=== PATIENT | male | born 1985 | race Asian ===

== ENCOUNTER 2021-07-21 11:25 | Outpatient (REF) | payer OTHER, SELFPAY | END 2021-07-21 11:26 | disposition home or self-care (01) | LOC: HO.LAB 11:25 | PROVIDERS: Visit Provider Internal Medicine | DX: Z20.822 Contact with and (suspected) exposure to COVID-19 (principal) | CPT/HCPCS: C9803; U0003; U0005 ==

== ENCOUNTER 2025-06-01 09:12 | Emergency (ER) | payer OTHER, SELFPAY ==
[2025-06-01] VITALS (7 sets, daily range): BP systolic 128–141; BP diastolic 86–93; PULSE 80–115; RESP 18–20; TEMP 36.2–36.9; O2SAT 93–97; BMI 32.5
--- NOTE | ~2025-06-01 | CT_ITS ---
EXAMINATION: CT ANGIOGRAM CHEST CLINICAL INFORMATION: Shortness of breath, chest pain, elevated d-dimer COMPARISON: Same-day chest x-ray TECHNIQUE: Multiple axial images were obtained through the chest after the administration of 65 mL of Omnipaque 350 intravenous contrast. Extensive vascular post-processing including two-dimensional and three-dimensional reformatted images were created and reviewed on an independent workstation. This CT examination was performed using dose optimization techniques as appropriate, variously including the following: *Automated exposure control *Adjustment of mA and/or kV according to patient size (this includes techniques or standardized protocols for targeted exams where dose is matched to indication/reason for exam; i.e. extremities or head) *Use of iterative reconstruction technique DLP: 286 mGY*cm FINDINGS: QUALITY OF STUDY/CONTRAST BOLUS: Suboptimal with incomplete opacification of uncertain etiology. Contrast is clearly evident at the inflow side in the superior vena cava, and there is also good contrast opacification in the aortic root on the outflow side. Nonetheless, opacification of the pulmonary artery is less than the opacification in the thoracic aorta and pulmonary veins. PULMONARY ARTERIES: No central pulmonary emboli. Emboli of peripheral vessels cannot be excluded with any degree of certainty. THORACIC AORTA: Well opacified by contrast without aneurysm or vascular calcifications. LUNGS AND PLEURA: Multifocal groundglass opacities are present in the left lower lobe. MEDIASTINUM: Unremarkable CORONARY ARTERY CALCIFICATION: No vascular calcifications are evident. CHEST WALL/AXILLA: No axillary or internal mammary lymphadenopathy. UPPER ABDOMEN: Unremarkable BONES: Unremarkable CT/CT angio chest PE protocol IMPRESSION: Patchy groundglass density in the left lower lobe raises concern for pneumonia/atypical pneumonia. Poor quality study. No gross or central pulmonary embolus. Fleischner guidelines were followed. Electronically signed by: Ross Solares MD 06/01/2025 03:31 PM EDT
--- NOTE | ~2025-06-01 | US_ITS ---
EXAMINATION: US LOWER EXTREMITY VEINS LIMITED FOLLOW UP LEFT HISTORY: calf pain COMPARISON: There are no prior studies available for comparison. TECHNIQUE: Duplex and color Doppler sonographic examination of the deep venous system of the left lower extremity was performed. FINDINGS: The common femoral, superficial femoral, and popliteal veins are patent demonstrating normal compressibility, spontaneous flow, and augmentation. There is a normal color and spectral Doppler waveform appearance of the visualized deep venous system above the knee. The posterior tibial and peroneal veins are patent. US/US venous duplex LE LT IMPRESSION: No evidence of acute DVT in the left lower extremity. Electronically signed by: Matt Silva MD 06/01/2025 01:14 PM EDT
--- NOTE | ~2025-06-01 | XR_ITS ---
EXAMINATION: XR CHEST CLINICAL INFORMATION: coughing, flu exposure COMPARISON: None available. TECHNIQUE: 2 views of the chest were obtained. FINDINGS: The cardiac, hilar, and mediastinal contours are normal. The lungs are clear bilaterally. There is no pneumothorax or pleural effusion. There is no focal osseous or soft tissue abnormality. XR/XR chest 2V IMPRESSION: Normal chest. Electronically signed by: Armen Vegas MD 06/01/2025 10:22 AM EDT
--- NOTE | 2025-06-01 09:51 | ED.GENADULT ---
HPI - General Adult General Chief complaint: Upper Respiratory Symptoms Stated complaint: stated he feels like he has a flu Time Seen by Provider: 06/01/25 09:50 Source: patient and RN notes reviewed Mode of arrival: ambulatory Limitations: no limitations History of Present Illness ED Provider: Shelbi Inman PA-C HPI narrative: This is a 40-year-old male who presents emergency department for evaluation of cough, intermittent fevers, shortness for breath, and chest pain for the last 10 days. Patient reports that he was recently exposed to the flu and believes that he has these symptoms. He has been taking [id number] cold medication which has provided him with some relief. He states that the chest pain is constant, worsens with coughing. No recent travel, surgery, hospitalizations. No surgeries. He is a smoker, typically smokes a pack every 3 days. No other complaints or concerns at this time. MD complaint: Shortness for breath, fevers, cough Onset (ago): day(s) Relieving factors: none Exacerbating factors: none Associated symptoms: denies other symptoms Related Data Previous Rx's ?Medication ?Instructions ?Recorded azithromycin 250 mg tablet See Rx Instructions PO .COMPLEX #6 06/01/25 tabs Allergies Allergy/AdvReac Type Severity Reaction Status Date / Time No Known Allergies Allergy Verified 06/01/25 09:16 Review of Systems Review of Systems: Yes all other systems are reviewed and are negative Constitutional: Constitutional: Reports as per [facility] Past Medical History Attestation statement: The following information was validated with the patient. Social History Social History Alcohol intake: current Alcohol intake frequency: holidays/special occasions only Physical Exam ED Vital Signs: Vital Signs - 24 hr 06/01/25 09:15 06/01/25 09:47 06/01/25 09:47 Temperature 97.1 F Pulse Rate 100 Respiratory Rate 18 18 Blood Pressure 141/90 H Pulse Oximetry 97 96 Oxygen Delivery Method Room Air Room Air 06/01/25 09:47 06/01/25 12:31 06/01/25 13:28 Temperature 98.3 F 98.4 F Pulse Rate 81 Respiratory Rate 18 Blood Pressure 131/86 Pulse Oximetry 97 93 95 Oxygen Delivery Method Room Air Room Air 06/01/25 13:28 06/01/25 13:55 06/01/25 16:10 Temperature 98.1 F Pulse Rate 115 H 80 82 Respiratory Rate 20 18 18 Blood Pressure 128/93 H 134/89 Pulse Oximetry 95 96 97 Oxygen Delivery Method Room Air Room Air Room Air BMI result Body Mass Index 32.5 Const General: cooperative, comfortable and no acute distress Orientation/consciousness: patient oriented x3 Limitations: no limitations HENMT Head: Yes normal to inspection, Yes normocephalic and Yes atraumatic Ears: hearing grossly normal bilaterally General nose exam: Normal external nose present Face and sinus: Yes normal facial exam Mouth: Normal oral and palatal mucosa present, oropharynx normal and moist mucous membranes Throat: Yes posterior oropharynx normal Eyes General: appearance normal, both eyes and all related structures Eyelids: Yes eyelids normal Conjunctivae: conjunctivae normal Sclerae: sclerae normal Pupils: Equal, round and reactive pupils present EOM: EOMs intact bilaterally Neck Neck: Yes normal visual inspection, Yes full ROM and Yes no lymphadenopathy Lymphatic: no lymphadenopathy noted Chest Chest palpation & inspection: normal inspection of the chest Resp Effort & Inspection: normal respiratory effort and able to speak in complete sentences Auscultation: clear to auscultation bilaterally, no crackles, no rales, no rhonchi and no wheezes Cardio Rate: regular rate Rhythm: regular rhythm Heart sounds: S1 normal heart sound present and S2 normal heart sound present GI Inspection: Yes normal to inspection Skin General skin exam: no rashes or lesions noted Trauma: no lacerations or abrasions Wounds: no wounds Neuro General: patient oriented x3 and moves all extremities Cranial nerves: Yes Equal, round and reactive pupils present Extrem Other: Mild left calf pain, strong DP pulse. General: Yes normal to inspection Right upper extremity: normal to inspection Left upper extremity: normal to inspection Right lower extremity: normal to inspection Left lower extremity: normal to inspection Medications Administered Discontinued Medications Generic Name Dose Route Start Last Admin Trade Name Freq PRN Reason Stop Dose Admin Iohexol 100 ml 06/01/25 15:05 06/01/25 15:11 Iohexol 350 Mg/Ml 100 Ml Infus..Btl IV 06/01/25 15:06 65 ml ONCE ONE Administration Medical Decision Making Medical Decision Making MDM Narrative: This is a 40-year-old male who presents emergency department with concerns of fever, cough, difficulty breathing. Recent exposure to flu. On arrival, blood pressure mildly elevated 141/90, all other vital signs within normal limits. Differential diagnoses include flu, COVID, RSV. Given chest discomfort, will obtain EKG and basic labs. Will also obtain x-ray. Patient is speaking in full sentences under no acute distress, lungs are clear to auscultation bilaterally. 1307 - labs returned, he has no leukocytosis, stable H&H, chemistry revealing slight elevation in AST and ALT at 40 and 81, troponin less than 2.7. Awaiting ultrasound. Chest x-ray unremarkable. 1618 -ultrasound negative. CTA was performed given elevated D-dimer. patient found to have patchy ground-glass density in the left lower lobe, raising concern for pneumonia/atypical pneumonia. Discussed findings with patient. Discharged on azithromycin. Vital signs are within normal limits. Patient stable for discharge. Differential Diagnosis Differential Diagnoses: The differential diagnosis associated with the presentation includes See above Admission/Observation Consideration of admission/observation: Escalation of care including admission/observation considered Lab Data MDM Lab Attestation statement: I reviewed the patient's lab results. See MDM and course 06/01/25 11:39 06/01/25 10:07 Labs: Lab Results 06/01/25 06/01/25 06/01/25 Range/Units 09:19 10:07 10:58 WBC (4.8-10.8) X10*3/uL RBC (4.60-5.80) X10*6/uL Hgb (14.0-18.0) g/dl Hct (42.0-52.0) % MCV (80.0-98.0) fL MCH (27.0-33.0) pg MCHC (31.0-36.0) g/dl RDW (11.0-16.0) % Plt Count (160-400) X10*3/uL MPV (9.4-12.4) fL Immature Gran % (Auto) (0.0-0.4) % Neut % (Auto) (45-73) % Lymph % (Auto) (20-40) % Brooke % (Auto) (2-11) % Eos % (Auto) (0-4) % Baso % (Auto) (0-2) % Lymph # (Auto) (1.2-4.9) X10*3/uL Brooke # (Auto) (0.1-1.2) X10*3/uL Eos # (Auto) (0.0-0.4) X10*3/uL Baso # (Auto) (0.0-0.2) X10*3/uL Abs Immat Gran (auto) (0.00-0.03) X10*3/uL Absolute Neuts (auto) (2.0-8.3) x10*3/uL Absolute Nucleated RBC (0.0-0.012) X10*3/uL Nucleated RBC % (auto) (0.0-0.2) /100WBC PT (10.9-12.4) SEC INR (0.9-1.1) D-Dimer High Sensitivty NG/ML Sodium 138 (135-145) mmol/L Potassium 4.4 (3.3-5.1) mmol/L Chloride 107 (96-108) mmol/L Carbon Dioxide 20 L (22-29) mmol/L Anion Gap 15 (12-20) BUN 12 (9-16) mg/dL Creatinine 0.79 (0.5-1.4) mg/dL Estim Creat Clear Calc 146.2 Estimated GFR > 60 Random Glucose 104 (60-115) mg/dL Calcium 9.1 (8.4-10.2) mg/dL Magnesium 2.2 (1.6-2.6) mg/dL Total Bilirubin 0.5 (0.0-1.0) mg/dL Direct Bilirubin 0.1 (0.0-0.5) mg/dL AST 40 H (5-37) U/L ALT 81 H (0-40) U/L Alkaline Phosphatase 53 (39-117) U/L Troponin I High Sens < 2.7 (<3.5-35.0) ng/L Total Protein 8.8 H (6.5-8.0) g/dL Albumin 4.8 (3.5-5.0) g/dL Lipase 19 (8-78) U/L Influenza Type A (PCR) NEGATIVE (Negative) Influenza Type B (PCR) NEGATIVE (Negative) RSV RNA Qual (PCR) NEGATIVE (Negative) SARS-CoV-2 RNA (RT-PCR) NEGATIVE (Negative) 06/01/25 Range/Units 11:39 WBC 9.0 (4.8-10.8) X10*3/uL RBC 6.20 H (4.60-5.80) X10*6/uL Hgb 17.3 (14.0-18.0) g/dl Hct 52.3 H (42.0-52.0) % MCV 84.4 (80.0-98.0) fL MCH 27.9 (27.0-33.0) pg MCHC 33.1 (31.0-36.0) g/dl RDW 12.6 (11.0-16.0) % Plt Count 221 (160-400) X10*3/uL MPV 9.9 (9.4-12.4) fL Immature Gran % (Auto) 0.7 H (0.0-0.4) % Neut % (Auto) 58.1 (45-73) % Lymph % (Auto) 32.1 (20-40) % Brooke % (Auto) 6.8 (2-11) % Eos % (Auto) 2.0 (0-4) % Baso % (Auto) 0.3 (0-2) % Lymph # (Auto) 2.9 (1.2-4.9) X10*3/uL Brooke # (Auto) 0.6 (0.1-1.2) X10*3/uL Eos # (Auto) 0.2 (0.0-0.4) X10*3/uL Baso # (Auto) 0.0 (0.0-0.2) X10*3/uL Abs Immat Gran (auto) 0.06 H (0.00-0.03) X10*3/uL Absolute Neuts (auto) 5.2 (2.0-8.3) x10*3/uL Absolute Nucleated RBC 0.000 (0.0-0.012) X10*3/uL Nucleated RBC % (auto) 0.0 (0.0-0.2) /100WBC PT 11.0 (10.9-12.4) SEC INR 1.0 (0.9-1.1) D-Dimer High Sensitivty 378 NG/ML Sodium (135-145) mmol/L Potassium (3.3-5.1) mmol/L Chloride (96-108) mmol/L Carbon Dioxide (22-29) mmol/L Anion Gap (12-20) BUN (9-16) mg/dL Creatinine (0.5-1.4) mg/dL Estim Creat Clear Calc Estimated GFR Random Glucose (60-115) mg/dL Calcium (8.4-10.2) mg/dL Magnesium (1.6-2.6) mg/dL Total Bilirubin (0.0-1.0) mg/dL Direct Bilirubin (0.0-0.5) mg/dL AST (5-37) U/L ALT (0-40) U/L Alkaline Phosphatase (39-117) U/L Troponin I High Sens (<3.5-35.0) ng/L Total Protein (6.5-8.0) g/dL Albumin (3.5-5.0) g/dL Lipase (8-78) U/L Influenza Type A (PCR) (Negative) Influenza Type B (PCR) (Negative) RSV RNA Qual (PCR) (Negative) SARS-CoV-2 RNA (RT-PCR) (Negative) Independent Interpretation I performed an independent interpretation of an: EKG Interpretation: EKG normal sinus rhythm at a ventricular rate of 80 beats per minute, SD interval 170, QT QTC 356/410. No STEMI Radiology Impression Discussion of test interpretation with radiology: I have reviewed the radiologist's reading. Radiologist Impression: COMPARISON: Same-day chest x-ray TECHNIQUE: Multiple axial images were obtained through the chest after the administration of 65 mL of Omnipaque 350 intravenous contrast. Extensive vascular post-processing including two-dimensional and three-dimensional reformatted images were created and reviewed on an independent workstation. This CT examination was performed using dose optimization techniques as appropriate, variously including the following: *Automated exposure control *Adjustment of mA and/or kV according to patient size (this includes techniques or standardized protocols for targeted exams where dose is matched to indication/reason for exam; i.e. extremities or head) *Use of iterative reconstruction technique DLP: 286 mGY*cm FINDINGS: QUALITY OF STUDY/CONTRAST BOLUS: Suboptimal with incomplete opacification of uncertain etiology. Contrast is clearly evident at the inflow side in the superior vena cava, and there is also good contrast opacification in the aortic root on the outflow side. Nonetheless, opacification of the pulmonary artery is less than the opacification in the thoracic aorta and pulmonary veins. PULMONARY ARTERIES: No central pulmonary emboli. Emboli of peripheral vessels cannot be excluded with any degree of certainty. THORACIC AORTA: Well opacified by contrast without aneurysm or vascular calcifications. LUNGS AND PLEURA: Multifocal groundglass opacities are present in the left lower lobe. MEDIASTINUM: Unremarkable CORONARY ARTERY CALCIFICATION: No vascular calcifications are evident. CHEST WALL/AXILLA: No axillary or internal mammary lymphadenopathy. UPPER ABDOMEN: Unremarkable BONES: Unremarkable CT/CT angio chest PE protocol IMPRESSION: Patchy groundglass density in the left lower lobe raises concern for pneumonia/atypical pneumonia. Poor quality study. No gross or central pulmonary embolus. Fleischner guidelines were followed. Electronically signed by: Ross Solares MD 06/01/2025 03:31 PM EDT RP Dictated By: Ross Solares MD US/US venous duplex LE LT IMPRESSION: No evidence of acute DVT in the left lower extremity. Electronically signed by: Matt Silva MD 06/01/2025 01:14 PM EDT RP Dictated By: Matt Silva MD Signed By: <Electronically signed by Matt Silva MD in OV> XR/XR chest 2V IMPRESSION: Normal chest. Electronically signed by: Armen Vegas MD 06/01/2025 10:22 AM EDT RP Dictated By: Armen Vegas MD Discharge Plan Discharge Clinical Impression: Pneumonia Patient Disposition: Home, Self-Care Instructions: Community Acquired Pneumonia (ED), Pneumonia (ED) Additional Instructions: You were seen in the emergency department today. You have concerns for possible early pneumonia. Please take prescribed antibiotic as directed, finish the entire course even if your symptoms improve. Drink plenty of fluids get plenty of rest. Follow-up with your primary care physician. If any new or worsening symptoms occur including but not limited to severe shortness for breath, chest pain, please return for re-evaluation. Your CT scan of your chest does show patchy ground-glass density in the left lower low which is concerning for a pneumonia. Prescriptions: New azithromycin 250 mg tablet See Rx Instructions .ROUTE .COMPLEX Qty: 6 0RF Rx Instructions: For 250 mg dose pack: take 500 mg today (day 1), then 250 mg for 4 days (days 2-5) Stand Alone Forms: Work/School Release Interventions: ED Discharge Assessment Last Done: 06/01/25 16:50 Discharge Date/Time: 06/01/25 16:52 Print Language: Turkish
--- OUTSIDE RECORDS SUMMARY | 2025-06-01 09:54 | XMS_ITS | Clinical Summary ---
Author Organization [facility] ity Address [address] [place] [address] Care Team Providers Care Neon Sign Erector Name Role Phone Unavailable Primary Care Provider Unavailabl e Social History Tobacco Use Types Packs/Day Years Used Date Smoking Tobacco: Never Assessed Sex and Gender Information Value Date Recorded Sex Assigned at Not on file Legal Sex Male 3:11 AM EST Gender Identity Not on file Sexual Orientation Not on file Plan of Treatment Health Maintenance Due Date Last Done Comments DTaP,Tdap,and Td Vaccines (1 - Tdap) 2005 Hepatitis B Vaccines (1 of 3 - 19+ 3-dose series) 2005 COVID-19 Vaccine (2023-2 5 season) 2024 Depression Screening 11/12/2024 Cholesterol Screening (Lipid Panel) 02/03/2025 HIV Screening 02/03/2025 Hepatitis C Screening 02/03/2025 Social Influencers of Health Screening 02/03/2025 Influenza Vaccine (#1) 2025 HIB Vaccines Aged Out No longer eligi ble based on patient's age to complete this topic HPV Vaccines Aged Out No longer eligi ble based on patient's age to complete this topic Hepatitis A Vaccines Aged Out No long er eligible based on patient's age to complete this topic IPV Vaccines Aged Out No longer eligi ble based on patient's age to complete this topic MMR Vaccines Aged Out No longer eligi ble based on patient's age to complete this topic Meningococcal ACWY Vaccine Aged Out N o longer eligible based on patient's age to complete this topic Meningococcal B Vaccine Aged Out No l onger eligible based on patient's age to complete this topic Pneumococcal Vaccine: Pediat rics (0 to 5 Years) and At-Risk Patients (6 to 49 Years) Aged Out No longer eligible b ased on patient's age to complete this topic RSV Immunization Patients Un beto 20 months Aged Out No longer eligible b ased on patient's age to complete this topic Varicella Vaccines Aged Out No longer eligible based on patient's age to complete this topic
--- NOTE | 2025-06-01 10:11 | ECG_ITS ---
Test Reason : cp Blood Pressure : */* mmHG Vent. Rate : 80 BPM Atrial Rate : 80 BPM P-R Int : 170 ms QRS Dur : 98 ms QT Int : 356 ms P-R-T Axes : 50 1 10 degrees QTcB Int : 410 ms Normal sinus rhythm Minimal voltage criteria for LVH, may be normal variant ( [place] product ) Borderline ECG No previous ECGs available Referred By: Shelbi Inman Electronically Signed By: Delvis Rojas
[2025-06-01 10:28] LABS: Anion Gap 15 (12-20); Blood Urea Nitrogen 12 mg/dL (9-16); Calcium 9.1 mg/dL (8.4-10.2); Carbon Dioxide 20 mmol/L (22-29); Chloride 107 mmol/L (96-108); Creatinine Clr Calc Pharmacy 146.2; Estimated Glomerular Filt Rate > 60; Potassium 4.4 mmol/L (3.3-5.1); Sodium 138 mmol/L (135-145)
--- NOTE | 2025-06-01 10:35 | PC.NURSE ---
Pt coming in with reports of 10days worth of flu like symptoms. Pt reports his mother in law was positive. Pt reports intermit coughing with nonproductive clear sputum. Pt has had max temps at home of 103, resolves with Motrin and APAP. Pt is afebrile here. Pt reporting he is a daily smoker, 3 days is a pack worth. Reporting chest tightness with coughing and intermit (denies asthma history, denies normal inhalers) Pt reporting muscle cramping in bilat legs at this time, awaiting work up at this time, O2 stable and being monitored, call street within reach
[2025-06-01 10:46] LABS: Resp Syncy Virus RNA Qual PCR NEGATIVE (Negative); SARS COV2 PCR INHOUSE NEGATIVE (Negative)
[2025-06-01 11:27] LABS: Albumin Level 4.8 g/dL (3.5-5.0); Alkaline Phosphatase 53 U/L (39-117); Aspartate Amino Transferase 40 U/L (5-37); Lipase 19 U/L (8-78); Magnesium 2.2 mg/dL (1.6-2.6); Total Protein 8.8 g/dL (6.5-8.0); Troponin-I High Sensitivity < 2.7 ng/L (<3.5-35.0)
[2025-06-01 11:48] LABS: Hematocrit 52.3 % (42.0-52.0); Hemoglobin 17.3 g/dl (14.0-18.0); Imm Gran Abs Auto 0.06 X10*3/uL (0.00-0.03); Imm Gran Pct Auto 0.7 % (0.0-0.4); Lymphocytes Absolute Auto 2.9 X10*3/uL (1.2-4.9); Mean Corpuscular HGB Conc 33.1 g/dl (31.0-36.0); Mean Corpuscular Hemoglobin 27.9 pg (27.0-33.0); Mean Corpuscular Volume 84.4 fL (80.0-98.0); NRBC Abs Auto 0.000 X10*3/uL (0.0-0.012); NRBC Pct Auto 0.0 /100WBC (0.0-0.2); Platelet Count 221 X10*3/uL (160-400); Red Blood Count 6.20 X10*6/uL (4.60-5.80); White Blood Count 9.0 X10*3/uL (4.8-10.8)
[2025-06-01 11:53] LABS: INTERNATIONAL NORM RATIO 1.0 (0.9-1.1); Prothrombin Time 11.0 SEC (10.9-12.4)
[2025-06-01 12:08] LABS: Alanine Aminotransferase 81 U/L (0-40)
[2025-06-01 12:55] LABS: MANUAL DIFF FLAG NO
[2025-06-01 13:57] LABS: D Dimer High Sensitivity 378 NG/ML
--- NOTE | 2025-06-01 14:11 | PC.NURSE ---
IV placed for PE CT angio, pt educated on lab results and CT scan
[2025-06-01] MEDS: iohexoL 350 MG/ML 100 ML INFUS..BTL IV (15:11)
== END 2025-06-01 16:52 | disposition home or self-care (01) ==
PROVIDERS: Physician Assistant Medical; Emergency Provider Emergency Medicine
DX: J18.9 Pneumonia, unspecified organism (principal); M79.662 Pain in left lower leg; R05.9 Cough, unspecified; R06.02 Shortness of breath; R50.9 Fever, unspecified; Z03.818 Encounter for observation for suspected exposure to other biological agents ruled out; F17.210 Nicotine dependence, cigarettes, uncomplicated
CPT/HCPCS: 36415; 71046; 71275; 80048; 80076; 83690; 83735; 84484; 85025; 85379; 85610; 87637; 93005; 93971; 99284; 99285; Q9967

== ENCOUNTER → 2025-06-01 09:19 | Outpatient (BNV) | payer OTHER, SELFPAY | PROVIDERS: Emergency Provider Emergency Medicine; Visit Provider Radiology Diagnostic Radiology | DX: R06.02 Shortness of breath (principal); R07.9 Chest pain, unspecified; M79.662 Pain in left lower leg; R05.9 Cough, unspecified; Z20.828 Contact with and (suspected) exposure to other viral communicable diseases | CPT/HCPCS: 71046; 93971 ==

== ENCOUNTER → 2025-06-01 10:11 | Outpatient (BNV) | payer OTHER, SELFPAY | PROVIDERS: Emergency Provider Emergency Medicine; Visit Provider Internal Medicine Cardiovascular Disease | DX: R07.9 Chest pain, unspecified (principal) | CPT/HCPCS: 93010 ==

== ENCOUNTER 2025-07-06 11:28 | Emergency (ER) | payer OTHER, SELFPAY ==
[2025-07-06 11:30] VITALS: BP 158/98; PULSE 107; RESP 18; TEMP 36.6; O2SAT 97; BMI 31.0
--- NOTE | 2025-07-06 11:30 | ED_ITS ---
HPI - General Adult General Chief complaint: General Medical Stated complaint: body aches Time Seen by Provider: 07/06/25 11:37 Source: patient Mode of arrival: ambulatory Limitations: no limitations History of Present Illness ED Provider: Smiley Roblero APRN HPI narrative: 40 yo male with no known medical history here with complaints of 2 days of nasal congestion, cough, malaise, subjective fevers/chills. No recent travel. No sick contact. No SOB, CP, headache, neck pain/stiffness, vomiting/diarrhea, skin rash. Related Data Previous Rx's ?Medication ?Instructions ?Recorded azithromycin 250 mg tablet See Rx Instructions PO .COM PLEX #6 06/01/25 tabs Allergies Allergy/AdvReac Type Severity Reaction Status Date / Time No Known Allergies Allergy Verified 07/06/25 11:31 Review of Systems Review of Systems: Yes all other systems are reviewed and are negative Constitutional: Constitutional: Reports no additional constitutional complaints, Denies body ache(s), Reports chills, Reports fever(s), Denies headache(s), Reports malaise and Denies weakness Eyes: Eyes: Reports no additional eye complaints and Denies change in vision ENT: Reports system reviewed and no additional complaints, except as documented, Denies dizziness, Denies headache(s), Reports nasal congestion, Denies nasal discharge and Denies neck pain Cardiovascular: Cardiovascular: Reports no additional cardiovascular complaints, Denies chest pain, Denies leg edema and Denies dyspnea Respiratory: Respiratory: Reports no additional respiratory complaints, Reports cough and Denies dyspnea Gastrointestinal: Gastrointestinal: Reports no additional gastrointestinal complaints, Denies abdominal pain, Denies diarrhea, Denies nausea and Denies vomiting Genitourinary: Genitourinary: Denies urinary incontinence Musculoskeletal: Musculoskeletal: Reports no additional musculoskeletal complaints, Denies back pain, Denies arthralgias, Denies joint swelling, Denies neck pain, Denies numbness and Denies tingling Integumentary/Breasts: Skin/Breast: Reports system reviewed and no additional complaints, except as docu and Denies rash Neurologic: Reports system reviewed and no additional complaints, except as documented, Denies Abnormal speech present, Denies dizziness, Denies headache(s), Denies numbness, Denies tingling and Denies weakness [facility]LY [facility] Past Medical History Attestation statement: The following information was validated with the patient. Source: old records reviewed and nursing notes reviewed Social History Social History Alcohol intake: current Alcohol intake frequency: holidays/special occasions only Smoked in Last 30 Days: No Use of substances other than those prescribed or required for medical reasons: No Advance Directives: No Advance Directives Information Provided: Yes Do you have a plan to hurt others: No Plan Physical Exam ED Vital Signs: Vital Signs - 24 hr 07/06/25 11:30 07/06/25 11:46 Temperature 97.8 F 98.0 F Pulse Rate 107 H 107 H Respiratory Rate 18 18 Blood Pressure 158/98 H 150/100 H Pulse Oximetry 97 96 Oxygen Delivery Method Room Air Room Air BMI result Body Mass Index 31.0 Const General: cooperative, healthy appearing, comfortable and no acute distress Orientation/consciousness: patient oriented x3 Limitations: no limitations HENMT Head: Yes normal to inspection Ears: hearing grossly normal bilaterally and TM's normal bilaterally General nose exam: Normal external nose present Face and sinus: Yes normal facial exam Mouth: Normal oral and palatal mucosa present Throat: Yes posterior oropharynx normal, Yes tonsils normal and Yes uvula midline Eyes General: appearance normal, both eyes and all related structures Pupils: Equal, round and reactive pupils present Neck Neck: Yes normal visual inspection, Yes full ROM, Yes no lymphadenopathy and Yes no meningeal signs Chest Chest palpation & inspection: normal inspection of the chest Resp Effort & Inspection: normal respiratory effort Auscultation: clear to auscultation bilaterally Cardio Rate: regular rate Rhythm: regular rhythm Peripheral pulses: Peripheral pulses 2+ throughout GI Inspection: Yes normal to inspection Palpation (GI): Soft to palpation and nontender Auscultation: normal bowel sounds Back/Spine/Pelvis Thoracic/Lumbar Spine: thoracic and lumbar spine normal to inspection Skin General skin exam: no rashes or lesions noted Neuro General: patient oriented x3, moves all extremities, no meningeal signs, no focal motor deficits and normal sensation to monofilament Cranial nerves: Yes CN's II-XII intact bilaterally, Yes Equal, round and react krista pupils present, Yes Bilaterally intact EOM present, Yes Nystagmus not present, Yes Normal facial strength present and Yes Midline tongue present Cognition (Neuro): normal cognition Speech: No Abnormal speech present Gait exam (Neuro): Normal gait present Motor exam (neuro): 5/5 motor strength present throughout Sensory Exam: Normal double simultaneous stimulation for sensation Extrem General: Yes normal to inspection, Yes no calf tenderness and No pedal edema Course Course Course Narrative: Rapid medical examination performed in triage by Emmie Montenegro PA-C. Patient is a 40 year old assigned male at presenting to the emergency department with body aches and feeling generally unwell. Patient states he has felt generally unwell over the last 3 days and it feels similar to when he had the flu. Detailed physical exam and review of systems are deferred to the lab manager. Swabs ordered. Patient placed back in the waiting room pending room availability and results. Medical Decision Making Medical Decision Making MDM Narrative: 40 yo male with no known medical history here with complaints of 2 days of nasal congestion, cough, malaise, subjective fevers/chills. No recent travel. No sick contact. No SOB, CP, headache, neck pain/stiffness, vomiting/diarrhea, skin rash. Exam is benign VSS Will send flu, covid testing Differential Diagnosis Differential Diagnoses: The differential diagnosis associated with the presentation includes influenza, viral syndrome, strep pharyngitis, AOM Admission/Observation Consideration of admission/observation: Escalation of care including admission/observation considered Covid positive with no hypoxia or tachypnea requiring supplemental oxygen and or admission Lab Data [facility] Lab Attestation statement: I reviewed the patient's lab results. Labs: Lab Results 07/06/25 Range/Units 11:37 COVID-19 (ADELFO) Positive A (Negative) COVID-19 Clin Com See Note Influenza Type A (DAVEY) Negative (Negative) Influenza Type B (DAVEY) Negative (Negative) Influenza A & B Note See Note Tests considered The following testing was considered but not selected: No hypoxia or tachypnea to suggest need for CXR Prescription Management I considered prescription management with: Antiviral Discharge Plan Discharge Clinical Impression: COVID-19 Patient Disposition: Home, Self-Care Instructions: COVID-19 (Coronavirus Disease 2019) (ED), Social Distancing Guidelines for COVID-19 (ED) Additional Instructions: Alternate Motrin and Tylenol for pain or fever Your flu test is negative Your COVID test is positive Quarantine for 5 days and mask for an additional 5 more days Return for shortness of breath that is worsening, chest pain, fever which is not respond to Motrin and Tylenol home Prescriptions: No Action azithromycin 250 mg tablet See Rx Instructions .ROUTE .COMPLEX Qty: 6 0RF Rx Instructions: For 250 mg dose pack: take 500 mg today (day 1), then 250 mg for 4 days (days 2-5) Referrals: Physician,None [Primary Care Provider, Medical] Print Language: Irish
--- NOTE | 2025-07-06 11:37 | MHC.EDTECH ---
Patient brought into triage area,Flu,and Covid swabs obtained and sent to lab.
[2025-07-06 11:46] VITALS: BP 150/100; PULSE 107; RESP 18; TEMP 36.7; O2SAT 96
[2025-07-06 12:05] LABS: COVID-19 Test Positive (Negative); IDNOW Serial# 55D5AD1C
[2025-07-06 12:06] LABS: IDNOW Serial# 58CA691E; Influenza B2 Negative (Negative)
[2025-07-06 12:41] VITALS: BP 141/94; PULSE 91; RESP 18; TEMP 36.7; O2SAT 96
--- OUTSIDE RECORDS SUMMARY | 2025-07-06 13:20 | XMS_ITS ---
[facility] Name [facility] Organization Unknown Care Team Organization Name Specialty Phone Email Start Date End Da te [facility]o [facility] 09/19/20222023
--- OUTSIDE RECORDS SUMMARY | 2025-07-06 13:20 | XMS_ITS | Clinical Summary ---
Author Organization [facility] ity Address [address] [place] [address] Care Team Providers Care Courtroom Deputy Or Calendar Clerk Name Role Phone Unavailable Primary Care Provider [...]
== END 2025-07-06 12:41 | disposition home or self-care (01) ==
PROVIDERS: Physician Assistant Medical; Emergency Provider Emergency Medicine
DX: U07.1 COVID-19 (principal); M79.10 Myalgia, unspecified site; R50.9 Fever, unspecified
CPT/HCPCS: 87502; 87635; 99283; 99284

== ENCOUNTER 2025-09-16 20:14 | Emergency (ER) | payer OTHER, SELFPAY ==
--- NOTE | ~2025-09-16 | XR_ITS ---
CLINICAL HISTORY: chest pain 2 view chest x-ray Comparison: CT/SR - CT CHEST ANGIOGRAPHY WITH IV CONTRAST - 06/01/25 14:54 EDT CR/ME/SR - XR CHEST 2 VIEWS - 06/01/25 10:19 EDT Findings: The lungs are clear. Normal size heart. No acute fracture. IMPRESSION: 1. No acute findings. This document has been electronically signed by: Beatriz Streeter MD on 09/16/2025 22:09:24
--- NOTE | 2025-09-16 20:15 | ECG_ITS ---
Test Reason : chest pain Blood Pressure : */* mmHG Vent. Rate : 110 BPM Atrial Rate : 110 BPM P-R Int : 156 ms QRS Dur : 84 ms QT Int : 318 ms P-R-T Axes : 54 -10 13 degrees QTcB Int : 430 ms Sinus tachycardia Otherwise normal ECG When compared with ECG of 01-Jun-2025 10:34, No significant change was found Referred By: Generic ED Physician Electronically Signed By: Delvis Rojas
[2025-09-16 20:27] VITALS: BP 142/94; PULSE 111; RESP 20; TEMP 36.7; O2SAT 95; BMI 32.5
--- OUTSIDE RECORDS SUMMARY | 2025-09-16 20:55 | XMS_ITS | Clinical Summary ---
Author Organization [facility] ity Address [address] [place] [address] Care Team Providers Care Tool Design Drafter Name Role Phone Unavailable Primary Care Provider [...] of 3 - 19+ 3-dose series) 2005 HPV Vaccines (1 - 3-dose SCD M series) 2013 Depression Screening 11/12/2024 COVID-19 Vaccine (1 - 2023-2 5 season) 2025 Influenza Vaccine (#1) 2025 RSV Immunization Adult Patie nts (1 - 1-dose 75+ series) 2061 HIB Vaccines Aged Out No longer eligi [...]
[2025-09-16 21:05] LABS: MANUAL DIFF FLAG NO
[2025-09-16 21:07] LABS: Hematocrit 52.8 % (42.0-52.0); Hemoglobin 17.5 g/dl (14.0-18.0); Imm Gran Abs Auto 0.07 X10*3/uL (0.00-0.03); Imm Gran Pct Auto 0.9 % (0.0-0.4); Lymphocytes Absolute Auto 2.1 X10*3/uL (1.2-4.9); Mean Corpuscular HGB Conc 33.1 g/dl (31.0-36.0); Mean Corpuscular Hemoglobin 28.3 pg (27.0-33.0); Mean Corpuscular Volume 85.3 fL (80.0-98.0); NRBC Abs Auto 0.000 X10*3/uL (0.0-0.012); NRBC Pct Auto 0.0 /100WBC (0.0-0.2); Platelet Count 169 X10*3/uL (160-400); Red Blood Count 6.19 X10*6/uL (4.60-5.80); White Blood Count 7.4 X10*3/uL (4.8-10.8)
--- NOTE | 2025-09-16 21:19 | ED_ITS ---
HPI - URI/Sore Throat General Chief Complaint: Upper Respiratory Symptoms Stated Complaint: pneumonia? sob, CP Time Seen by Provider: 09/16/25 21:16 History of Present Illness ED Provider: Jigar Mina MD HPI Narrative: 40-year-old male with cough Related Data Previous Rx's ?Medication ?Instructions ?Recorded azithromycin 250 mg tablet See Rx Instructions PO .COM PLEX #6 06/01/25 tabs amoxicillin 500 mg tablet 1,000 mg (2 x 500 mg) PO TID 5 09/16/25 days #30 tabs Allergies Allergy/AdvReac Type Severity Reaction Status Date / Time No Known Allergies Allergy Verified 09/16/25 20:29 [facility] Social History Social History Alcohol intake: current Alcohol intake frequency: holidays/special occasions only Smoked in Last 30 Days: Yes Use of substances other than those prescribed or required for medical reasons: No Advance Directives: No Advance Directives Information Provided: Yes Physical Exam 2 Vital Signs: Vital Signs: Last Vital Signs Temp 98.1 F 09/16/25 22:25 Pulse 111 H 09/16/25 22:25 Resp 20 09/16/25 22:25 BP 142/94 H 09/16/25 22:25 Pulse Ox 95 09/16/25 22:25 O2 Del Method Room Air 09/16/25 22:25 BMI result Body Mass Index 32.5 Medical Decision Making Medical Decision Making [facility] Narrative: Medical Decision Making: [age] male with cough and phlegm production. No hypoxia tachycardia or fever here. He is an active smoker. He tells me he has no PCP and I am concerned about limited follow up, health literacy. I have advised him not to smoke. He had clear lungs are no distress but I felt it reasonable given the social situation lack of follow up. Amoxicillin 1 g t.i.d. 5 days [id number] cough medicine as needed return precautions instructed Preliminary Favored Differential Diagnosis: URI, bronchitis, viral syndrome, pneumonia, smoker cough, COPD though he has no wheeze or distress among additional considered etiologies Testing Interpreted Independently: ?Sinus rhythm interventricular conduction delay subtle ST depressions inferiorly without ST elevations beyond expected in the precordium V2 V3. No change from May 2025 no STEMI criteria Radiology or Lab testing Results Reviewed: ?See below for details Consults: ?See below for details Independent Historians/External Chart Reviews: ?See below for details Social Determinants of Health Impacting MDM/Planning: ?See below for details Lab Data 09/16/25 21:01 09/16/25 21:01 Labs: Lab Results 09/16/25 Range/Units 21:01 WBC 7.4 (4.8-10.8) X10*3/uL RBC 6.19 H (4.60-5.80) X10*6/uL Hgb 17.5 (14.0-18.0) g/dl Hct 52.8 H (42.0-52.0) % MCV 85.3 (80.0-98.0) fL MCH 28.3 (27.0-33.0) pg MCHC 33.1 (31.0-36.0) g/dl RDW 13.2 (11.0-16.0) % Plt Count 169 (160-400) X10*3/uL MPV 10.2 (9.4-12.4) fL Immature Gran % (Auto) 0.9 H (0.0-0.4) % Neut % (Auto) 53.1 (45-73) % Lymph % (Auto) 27.6 (20-40) % Bradley % (Auto) 15.7 H (2-11) % Eos % (Auto) 2.2 (0-4) % Baso % (Auto) 0.5 (0-2) % Lymph # (Auto) 2.1 (1.2-4.9) X10*3/uL Bradley # (Auto) 1.2 (0.1-1.2) X10*3/uL Eos # (Auto) 0.2 (0.0-0.4) X10*3/uL Baso # (Auto) 0.0 (0.0-0.2) X10*3/uL Abs Immat Gran (auto) 0.07 H (0.00-0.03) X10*3/uL Absolute Neuts (auto) 4.0 (2.0-8.3) x10*3/uL Absolute Nucleated RBC 0.000 (0.0-0.012) X10*3/uL Nucleated RBC % (auto) 0.0 (0.0-0.2) /100WBC Sodium 136 (135-145) mmol/L Potassium 4.0 (3.3-5.1) mmol/L Chloride 102 (96-108) mmol/L Carbon Dioxide 19 L (22-29) mmol/L Anion Gap 19 (12-20) BUN 13 (9-16) mg/dL Creatinine 1.07 (0.5-1.4) mg/dL Estim Creat Clear Calc 107.9 Estimated GFR > 60 Random Glucose 190 H (60-115) mg/dL Calcium 9.3 (8.4-10.2) mg/dL Total Bilirubin 0.3 (0.0-1.0) mg/dL AST 46 H (5-37) U/L ALT 73 H (0-40) U/L Alkaline Phosphatase 55 (39-117) U/L Troponin I High Sens < 2.7 (<3.5-35.0) ng/L Total Protein 8.2 H (6.5-8.0) g/dL Albumin 4.5 (3.5-5.0) g/dL COVID-19 (ADELFO) Negative (Negative) COVID-19 Clin Com See Note Influenza Type A (DAVEY) Negative (Negative) Influenza Type B (DAVEY) Negative (Negative) Influenza A & B Note See Note Discharge Plan Discharge Clinical Impression: Pneumonia Patient Disposition: Home, Self-Care Instructions: Community Acquired Pneumonia (DC) Additional Instructions: We are treating him with antibiotic for pneumonia given your symptoms. You did not have a primary doctor and we had concerned that you were to have trouble following up. Take the antibiotics as prescribed you can take [id number] cough medicine. Return if you develop significant shortness of breath severe chest pain or worsening symptoms despite antibiotics Prescriptions: New amoxicillin 500 mg tablet 1,000 mg PO TID 5 Days Qty: 30 0RF No Action azithromycin 250 mg tablet See Rx Instructions .ROUTE .COMPLEX Qty: 6 0RF Rx Instructions: For 250 mg dose pack: take 500 mg today (day 1), then 250 mg for 4 days (days 2-5) Interventions: ED Discharge Assessment Last Done: 09/16/25 22:25 Discharge Date/Time: 09/16/25 22:26 Print Language: Luxembourgish
[2025-09-16 21:29] LABS: IDNOW Serial# 55D5AD1C; Influenza B2 Negative (Negative)
[2025-09-16 21:39] LABS: Troponin-I High Sensitivity < 2.7 ng/L (<3.5-35.0)
[2025-09-16 22:05] LABS: Alanine Aminotransferase 73 U/L (0-40); Albumin Level 4.5 g/dL (3.5-5.0); Alkaline Phosphatase 55 U/L (39-117); Anion Gap 19 (12-20); Aspartate Amino Transferase 46 U/L (5-37); Blood Urea Nitrogen 13 mg/dL (9-16); Calcium 9.3 mg/dL (8.4-10.2); Carbon Dioxide 19 mmol/L (22-29); Chloride 102 mmol/L (96-108); Creatinine Clr Calc Pharmacy 107.9; Estimated Glomerular Filt Rate > 60; Potassium 4.0 mmol/L (3.3-5.1); Sodium 136 mmol/L (135-145); Total Protein 8.2 g/dL (6.5-8.0)
[2025-09-16 22:25] VITALS: BP 142/94; PULSE 111; RESP 20; TEMP 36.7; O2SAT 95
[2025-09-16 23:14] LABS: COVID-19 Test Negative (Negative); IDNOW Serial# 08D9AD1C
== END 2025-09-16 22:26 | disposition home or self-care (01) ==
PROVIDERS: Emergency Provider Emergency Medicine
DX: J18.9 Pneumonia, unspecified organism (principal); R07.9 Chest pain, unspecified; R06.02 Shortness of breath; R00.0 Tachycardia, unspecified; Z03.818 Encounter for observation for suspected exposure to other biological agents ruled out
CPT/HCPCS: 71046; 80053; 84484; 85025; 87502; 87635; 93005; 99284

== ENCOUNTER → 2025-09-16 20:15 | Outpatient (BNV) | payer OTHER, SELFPAY | PROVIDERS: Emergency Provider Emergency Medicine; Visit Provider Internal Medicine Cardiovascular Disease | DX: R00.0 Tachycardia, unspecified (principal) | CPT/HCPCS: 93010 ==

== ENCOUNTER → 2025-09-16 21:08 | Outpatient (BNV) | payer OTHER, SELFPAY | PROVIDERS: Emergency Provider Emergency Medicine; Visit Provider Radiology Diagnostic Radiology | DX: R07.9 Chest pain, unspecified (principal) | CPT/HCPCS: 71046 ==